=== PATIENT | male | born 1995 | race Caucasian/White ===

== ENCOUNTER 2017-09-02 21:55 | Emergency (ER) | payer SELFPAY | END 2017-09-02 22:55 | disposition home or self-care (01) | LOC: SCSER 21:55 | DX: R21 Rash and other nonspecific skin eruption (principal) | CPT/HCPCS: 99282 ==

== ENCOUNTER 2018-08-25 10:56 | Emergency (ER) | payer SELFPAY ==
--- NOTE | 2018-08-25 11:43 | RAD ---
FOUR VIEWS RIGHT KNEE: HISTORY: Pain. Injury. COMPARISON: None. FINDINGS: Joint spaces are preserved. No joint effusion. No fracture or malalignment. IMPRESSION: Unremarkable right knee 4 views. POS: [facility]
== END 2018-08-25 11:57 | disposition home or self-care (01) ==
LOC: ERS 10:56
DX: S83.411A Sprain of medial collateral ligament of right knee, initial encounter (principal); X50.1XXA Overexertion from prolonged static or awkward postures, initial encounter